=== PATIENT | male | born 1985 | race Caucasian/White ===

== ENCOUNTER 2017-08-13 13:49 | Emergency (ER) | payer MEDICAID, OTHER ==
[~2017-08-13] VITALS: Ht 177.8 cm; Wt 107.9 kg
[2017-08-13 13:55] VITALS: Ht 177.8 cm; Wt 107.9 kg
[2017-08-13] MEDS ORDERED: TRIA15CR55 TOP (16:21)
[2017-08-13] MEDS ORDERED: IBUP-1542 PO (16:21)
--- NOTE | 2017-08-13 16:27 | ERD ---
ER Documentation Chief Complaint Chief Complaint Pt presents with B hand drynnes and cracking of skin. HPI 32-year-old male comes in with low back pain 1 month, also with bilateral hand cracking and dryness. 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 He also has low back pain in the lumbar region that is localized, no radicular symptoms , no saddle anesthesia loss of bowel bladder function. The patient reports that the pain is worse when he lifts heavy objects. He denies fevers, chills, chest pain, shortness of breath. ROS All systems reviewed and are negative except as per history of present illness. Medications Home Meds Active Scripts Triamcinolone Acetonide (Triamcinolone Acetonide) 0.1% - 15 Gm Cream.gm., 1 APPLIC TOP BID, #1 TUB Prov:CHRISTINA NAJERA PA-C 08/13/17 Ibuprofen* (Motrin*) 600 Mg Tab, 600 MG PO Q6, #30 TAB Prov:CHRISTINA NAJERA PA-C 08/13/17 PMhx/Soc History of Surgery: No Anesthesia Reaction: No Hx Neurological Disorder: No Hx Respiratory Disorders: No Hx Cardiac Disorders: No Hx Psychiatric Problems: No Hx Miscellaneous Medical Probl: No Hx Alcohol Use: No Hx Substance Use: No Hx Tobacco Use: No Smoking Status: Never smoker Physical Exam Vitals Vital Signs Date Time Temp Pulse Resp B/P Pulse Ox O2 Delivery O2 Flow Rate FiO2 08/13/17 13:55 98.0 81 16 172/98 96 Physical Exam General: Well-developed, well-nourished. The patient appears in no acute distress. HEENT: Head is normocephalic, atraumatic. No scleral icterus. Neck: Supple. Nontender. Lungs: Clear to auscultation. Normal air movement. Heart: Regular rate and rhythm. S1 and S2 are normal. No murmurs, gallops, or rubs. Abdomen: Soft, nontender, nondistended. Bowel sounds are normoactive. Extremities: No clubbing or cyanosis. Normal pulses. Moving extremities x 4. No weakness. Neurologic: Alert and oriented 3. No focal deficits. Skin: There are multiple areas of cracking of the skin on the digits in the palm. Procedures/MDM 32-year-old male comes in with dry hands with cracking, the patient will begin triamcinolone cream to apply twice a day, the patient is also advised to apply Aquaphor to apply nightly with a glove. He will be given 1 week off work. Also comes in with low back pain, the pain is in the lumbar region, worse when he moves, likely musculoskeletal, no signs of cauda equina or neurologic injury and will be given ibuprofen for his pain. Departure Diagnosis: Primary Impression: Rash Condition: Good Patient Instructions: Causes of Lumbar (Low Back) Pain, Dermatitis, Non- Specific CHRISTINA NAJERA PA-C Aug 13, 2017 16:27
== END 2017-08-13 16:46 | disposition home or self-care (01) ==
LOC: FTE 13:49
DX: R21 Rash and other nonspecific skin eruption (principal)
CPT/HCPCS: 99283